=== PATIENT | female | born 1995 | race Caucasian/White ===

== ENCOUNTER → 2019-10-18 10:49 | Outpatient (CLI) | payer OTHER, SELFPAY ==
[2019-10-18 11:34] LABS: INR 3.6 (0.9-1.3); Prothrombin Time 40.3 SECONDS (10.1-12.7)
== END ==
PROVIDERS: PCP Family Medicine; Referring Provider Pharmacist; Visit Provider Pharmacist
DX: Z79.01 Long term (current) use of anticoagulants (principal)
CPT/HCPCS: 36415; 85610

== ENCOUNTER → 2019-10-27 10:03 | Outpatient (CLI) | payer OTHER, SELFPAY ==
[2019-10-27 10:50] LABS: INR 2.5 (0.9-1.3); Prothrombin Time 28.9 SECONDS (10.1-12.7)
== END ==
PROVIDERS: PCP Family Medicine; Referring Provider Family Medicine; Visit Provider Family Medicine
DX: Z79.01 Long term (current) use of anticoagulants (principal)
CPT/HCPCS: 36415; 85610

== ENCOUNTER → 2020-09-22 16:58 | Outpatient (CLI) | payer OTHER, SELFPAY ==
[2020-09-22] MEDS: COVID-19 VACC #1, MRNA(MOD) 100 MCG/0.5 ML VIAL IM (17:04)
== END ==
PROVIDERS: PCP Family Medicine; Visit Provider Internal Medicine
DX: Z23 Encounter for immunization (principal)
CPT/HCPCS: 0011A; 91301

== ENCOUNTER → 2020-10-20 09:59 | Outpatient (CLI) | payer OTHER, SELFPAY ==
[2020-10-20] MEDS: COVID-19 VACC #2, MRNA(MOD) 100 MCG/0.5 ML VIAL IM (10:03)
== END ==
PROVIDERS: Visit Provider Internal Medicine
DX: Z23 Encounter for immunization (principal)
CPT/HCPCS: 0012A; 91301

== ENCOUNTER → 2024-08-15 14:20 | Outpatient (CLI) | payer OTHER, SELFPAY ==
[2024-08-15 15:08] LABS: Influenza A - CEPHEID Flu A NEGATIVE (NEGATIVE); Influenza B - CEPHEID Flu B NEGATIVE (NEGATIVE); Respiratory Syncytial Virus Negative (Negative)
[2024-08-15 15:15] LABS: COVID-19 CEPHEID 4-PLEX PCR Negative (Negative)
== END ==
PROVIDERS: Visit Provider Physician Assistant Surgical
DX: R52 Pain, unspecified (principal); R51.9 Headache, unspecified; R11.0 Nausea; R50.9 Fever, unspecified
CPT/HCPCS: 0241U